=== PATIENT | male | born 1990 | race Caucasian/White ===

== ENCOUNTER 2022-04-19 14:43 | Emergency (ER) | payer OTHER, SELFPAY ==
--- NOTE | ~2022-04-19 | XR_ITS ---
EXAMINATION: XR CHEST CLINICAL INFORMATION: Cough COMPARISON: None TECHNIQUE: Frontal view of the chest was obtained. FINDINGS: Left hemidiaphragm is elevated with gaseous distention of colon beneath. Otherwise, significant abnormality is noted involving the heart, lungs, mediastinum, bony thorax or soft tissues. XR/XR chest 1V IMPRESSION: No acute intrathoracic disease. Elevated left hemidiaphragm.
[2022-04-19 17:52] VITALS: BP 129/78; PULSE 108; RESP 16; TEMP 39.3; O2SAT 97; BMI 30.7
[2022-04-19 18:57] LABS: Influenza A PCR POSITIVE (Negative); Influenza B PCR NEGATIVE (Negative); Resp Syncy Virus RNA Qual PCR NEGATIVE (Negative); SARS COV2 PCR INHOUSE NEGATIVE (Negative)
--- NOTE | 2022-04-19 19:14 | ED_ITS ---
HPI - General Adult General Chief complaint: Fever Stated complaint: fever, cough Time Seen by Provider: 04/19/22 19:14 Source: patient Mode of arrival: ambulatory Limitations: no limitations History of Present Illness HPI narrative: 31-year-old male with history of asthma presents to the emergency department today for 1 week of flu-like symptoms. Predominant symptoms include sore throat, cough, chills, fever, malaise, fatigue, nausea. 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 Took a COVID homes as 2 days ago, negative. Has been using ibuprofen him/Tylenol at home for symptoms, has helped minimally. No known sick contacts. Denies chest pain, shortness of breath, wheezing, weakness, headache, vomiting, diarrhea. Last bowel movement was yesterday, no blood or mucus in stool. Passing flatus. Patient states asthma is well controlled does not use any daily medications. Related Data Previous Rx's Medication Instructions Recorded albuterol sulfate 90 mcg/actuation 2 inh inhalation Q4-6H PRN 04/19/22 breath activated powder inhaler shortness of breath #1 ea benzonatate 100 mg capsule 100 mg PO BID PRN cough #20 caps 04/19/22 Allergies Allergy/AdvReac Type Severity Reaction Status Date / Time Unable to Assess Allergy Unverified 04/19/22 19:23 Review of Systems Review of Systems: Constitutional : No Weight loss, + Fever, + Chills, + Fatigue, + Malaise ENT/Mouth : No sore throat, No Rhinorrhea Eyes: No Eye Pain, No Swelling, No Redness Cardiovascular : No Chest Pain, No SOB, No Dyspnea on Exertion, No Orthopnea, No Edema, No Palpitations Respiratory : + Cough, No Sputum, No Wheezing Gastrointestinal : + Nausea, No Vomiting, No Diarrhea, No Constipation, No abdominal Pain, No Hematochezia, No Melena Genitourinary : No Dysuria, No Urinary Frequency, No Hematuria, Musculoskeletal : No joint pain, + Myalgias, No Joint Swelling Skin : No Skin Lesions, No rash Neuro : No Weakness, No Numbness, No Dizziness, No Headache All other systems reviewed and are negative Yes all other systems are reviewed and are negative [facility] Past Medical History Attestation statement: The following information was validated with the patient. Source: old records reviewed and nursing notes reviewed Social History Social History Advance Directives: No Advance Directives Information Provided: No Physical Exam ED Vital Signs: Vital Signs - 24 hr 04/19/22 17:52 04/19/22 21:06 Temperature 102.8 F H 99.7 F Pulse Rate 108 H 97 Respiratory Rate 16 18 Blood Pressure 129/78 121/75 Pulse Oximetry 97 96 Oxygen Delivery Method Room Air Room Air BMI result Body Mass Index 30.7 Febrile, tachycardic likely secondary to viral infection Appearance: Alert.? Oriented X3.? No acute distress.? Head: Normocephalic, atraumatic, no step-offs or deformities Eyes: Pupils equal, round and reactive to light.? ENT: Pharynx normal.? Neck: Normal inspection.? Neck supple.? CVS: Normal heart rate and rhythm.? Pulses normal.? Respiratory: No respiratory distress.? Breath sounds normal.? Abdomen: Soft and nontender.? Skin: Skin warm and dry.? Normal skin color.? Normal skin turgor.? Extremities: No lower extremity edema.? No calf ttp. 5/5 strength to bilateral upper and lower extremities Neuro: Oriented X 3.? No motor deficit.? No sensory deficit. CN 2-12 intact Course Reevaluation(s) Reevaluation #1: Patient noted to be positive for influenza, chest x-ray pending. Patient will be discharged home advised to return with new or worsening symptoms, educated on worrisome signs and symptoms and when to return. Educated on supportive measures. Advised to practice good hygiene. Time: 19:17 Reevaluation #2: Chest x-ray showing no acute intrathoracic disease an elevated left hemidiaphragm. Gaseous distension of colon beneath, no signs of bowel obstruction on exam normoactive bowel sounds, patient evacuating without difficulty, passing gas, no abdominal surgeries. I do not suspect large or small bowel obstruction. At this time patient will be discharged home will discharge him with albuterol as he is an asthmatic and does not have an inhaler. Will also give him Benzonate Perles for cough. Time: 19:26 Reevaluation #3: Temperature 105.1 degrees. Given Tylenol 975 mg once and ibuprofen 600 mg once. Will recheck to see if fever go goes down. Patient resting in bed, appears comfortable in no acute distress. Time: 20:00 Additional Reevaluation(s): 2116 Patient's temperature responding well to ibuprofen and Tylenol, now afebrile. Educated him on taking ibuprofen and Tylenol. Educated him on worrisome signs and symptoms and when to return. At this time patient will be discharged home with prompt PCP follow-up. Educated on worrisome signs and symptoms. Comfortable discharge. At time of discharge patient tolerating p.o. and appears much better than he did when he 1st arrived. Patient feeling better. Medications Administered Discontinued Medications Generic Name Dose Route Start Last Admin Trade Name Fidel PRN Reason Stop Dose Admin Acetaminophen 975 mg 04/19/22 19:30 04/19/22 19:35 Acetaminophen 325 Mg Tablet PO 04/19/22 19:31 975 mg ONCE ONE Administration Ibuprofen 600 mg 04/19/22 17:57 04/19/22 19:19 Ibuprofen 600 Mg Tablet PO 04/19/22 17:58 600 mg ONCE ONE Administration Medical Decision Making [place] Narrative Medical decision making narrative: 1913 31-year-old male presenting with flu-like symptoms for a week. Physical exam benign Likely viral infection. Unlikely PE or pneumonia. Plan at this time viral panel, x-ray. Medical Records Medical records reviewed: Yes I reviewed the patient's medical records. Lab Data Lab results reviewed: Yes I reviewed the patient's lab results. Labs: Lab Results 04/19/22 Range/Units 18:11 Influenza Type A (PCR) POSITIVE A (Negative) Influenza Type B (PCR) NEGATIVE (Negative) RSV RNA Qual (PCR) NEGATIVE (Negative) SARS-CoV-2 RNA (RT-PCR) NEGATIVE (Negative) Critical Care Time Critical Care Time Critical Care Time: No Discharge Plan Discharge Clinical Impression: Influenza, Fever Patient Disposition: Home, Self-Care Instructions: Influenza (ED) Additional Instructions: Take your medications as prescribed. If you were prescribed antibiotics today, it is important that you take your medication to their entirety, do not skip any doses, do not finish them early. Follow-up with your primary care provider this week. Return to the emergency department with new or worsening symptoms. Such as fevers, chills, chest pain, shortness of breath, nausea, vomiting, dizziness, headache, vision changes, lethargy In case of emergency call 911 You can take ibuprofen every 6 hours, Tylenol every 4 hours as needed for pain, discomfort or fevers and chills You are contagious!. Please practice good hand hygiene. Drink plenty of fluids. XR/XR chest 1V IMPRESSION: No acute intrathoracic disease. Elevated left hemidiaphragm. ? Prescriptions: New benzonatate 100 mg capsule 100 mg PO BID PRN (Reason: cough) Qty: 20 0RF albuterol sulfate 90 mcg/actuation aerosol powdr breath activated 2 inh inhalation Q4-6H PRN (Reason: shortness of breath) Qty: 1 0RF Referrals: Physician,None [Primary Care Provider] - 2 days Stand Alone Forms: Work/School Release
[2022-04-19] MEDS: Ibuprofen 600 MG TABLET PO (19:19)
[2022-04-19] MEDS: Acetaminophen 325 MG TABLET 975 MG PO (19:35)
[2022-04-19 21:06] VITALS: BP 121/75; PULSE 97; RESP 18; TEMP 37.6; O2SAT 96
--- NOTE | 2022-04-19 21:46 | PC.NURSE ---
Discharge instructions reviewed with pt. pt verbalizes understanding.
== END 2022-04-19 21:47 | disposition home or self-care (01) ==
PROVIDERS: Emergency Provider Internal Medicine
DX: J11.1 Influenza due to unidentified influenza virus with other respiratory manifestations (principal); R50.9 Fever, unspecified; J45.909 Unspecified asthma, uncomplicated; Z20.822 Contact with and (suspected) exposure to COVID-19
CPT/HCPCS: 0241U; 71045; 99283; 99284